=== PATIENT | male | born 1960 | race Asian ===

== ENCOUNTER 2016-06-27 22:30 | Emergency (ER) | payer OTHER ==
[2016-06-27 22:43] VITALS: BP 175/104; PULSE 73; RESP 18; TEMP 98.1; O2SAT 98
[2016-06-27] MEDS ORDERED: valACYclovir 500 MG TAB PO ONE (22:50)
[2016-06-27] MEDS ORDERED: HYDROCOD/APAP 5/325 PREPACK#6 BTL TAKEHOME ONE (22:51)
[2016-06-27] MEDS ORDERED: IBUPROFEN 200 MG TAB PO ONE (22:51)
--- NOTE | 2016-06-27 22:53 | UCPHY ---
H & P Time Seen by Provider: 06/27/16 22:50 Patient Type: New HPI/ROS: This patient has blisters to his 5 neck and cheek that are burning in nature with mild itching. Symptoms came on over the past 48 hours and been steadily increasing. The left ear is also involved. He reports increased stress recently and also recent URI symptoms that are improving that consisted of coryza and occasional cough. ROS: No headache. No confusion. No ocular symptoms. 7 point ROS is otherwise negative. Past Medical/Surgical History: No previous zoster. Otherwise healthy Social History: Does not drink alcohol. Does not use drugs. Smoking Status: Never smoked Physical Exam: Physical Exam Vital signs are normal. General: No acute distress HEENT: Nose: Clear discharge bilaterally. No sinus tenderness to percussion. Ears: External canals and tympanic membranes are clear with no erythema or abnormal findings bilaterally. Oropharynx: No intraoral lesions. No erythema or exudates. No dysphonia. No drooling or stridor. Eyes: Pupils equal and react to light. Extraocular motions are intact. No conjunctival injection. Neck: Supple Lungs: Clear to auscultation bilaterally with no rales, rhonchi or wheeze. No respiratory distress. Cardiac: Regular rate and rhythm with no murmur gallop or rub Skin: Patient has fascicular and erythematous papular rash in a dermatomal distribution of the left lateral neck, ear and cheek isolated to the left side. No petechia or purpura. Neuro: Alert with no focal deficits noted. GCS of 15. Cranial nerves 2-12 grossly intact Initial differential diagnosis: Zoster, contact dermatitis, doubt cellulitis Constitutional: Initial Vital Signs Temperature (C) 36.7 C 06/27/16 22:41 Heart Rate 73 06/27/16 22:41 Respiratory Rate 18 06/27/16 22:41 Blood Pressure 175/104 H 06/27/16 22:41 O2 Sat (%) 98 06/27/16 22:41 O2 Delivery Mode Room Air Allergies/Adverse Reactions: No Known Allergies Allergy (Unverified 06/27/16 22:41) Home Medications: Medication Instructions Recorded Hydrochlorothiazide 06/27/16 Hydrocodone/APAP 5/325 [[place] 1 - 2 tab PO Q4PRN PRN #12 tab 06/27/16 5/325 (*)] Metoprolol Tartrate 06/27/16 Valacyclovir HCl [Valtrex] 1,000 mg PO TID #21 tab 06/27/16 MDM/Departure - MDM Medications Given: Discontinued Medications Hydrocodone Bitart/Acetaminophen ([place] 5/325mg Prepack#6) 1 btl TAKEHOME EDNOW ONE Stop: 06/27/16 22:52 Last Admin: 06/27/16 23:15 Dose: 1 btl Acyclovir (Zovirax 400 Mg Prepack #4) 1 btl TAKEHOME EDNOW ONE Stop: 06/27/16 23:21 Last Admin: 06/27/16 23:15 Dose: 1 btl Ibuprofen (Motrin) 600 mg PO EDNOW ONE Stop: 06/27/16 22:52 Last Admin: 06/27/16 23:15 Dose: 600 mg Valacyclovir HCl (Valtrex) 1,000 mg PO EDNOW ONE Stop: 06/27/16 22:51 Last Admin: 06/27/16 23:22 Dose: Not Given ED Course/Re-evaluation: With exception of the rash characteristic of zoster this patient appears clinically well without clinical evidence to suggest sepsis, BOX [employer] infection or cellulitis. - Depart Disposition: Home, Routine, Self-Care Clinical Impression: Zoster Qualifiers: Herpes zoster complications: without complications Qualified Code(s): B02.9 - Zoster without complications Condition: Good Instructions: Hydrocodone/Acetaminophen (By mouth), Acyclovir (By mouth), Shingles (ED) Additional Instructions: Diagnosis: Shingles (zoster) Plan: Valtrex antiviral as prescribed [id number] mg per 6 hours while awake as needed for pain Tylenol or Vicodin in addition if needed. No driving, alcohol or come Vicodin. Return for any significant worsening despite the treatment plan Prescriptions: Hydrocodone/APAP 5/325 [[place] 5/325 (*)] 1 - 2 tab PO Q4PRN PRN #12 tab PRN Reason: Pain Valacyclovir HCl [Valtrex] 1,000 mg PO TID #21 tab Referrals: NONE *PRIMARY CARE P,. [Primary Care Provider] - As per Instructions - PQRS PQRS Measurement: NA
[2016-06-27] MEDS ORDERED: ACYCLOVIR 400 MG PREPACK#4 BTL TAKEHOME ONE ×2 (23:02→23:20)
== END 2016-06-27 23:15 | disposition home or self-care (01) ==
LOC: CED 22:30
DX: B02.9 Zoster without complications (principal)
CPT/HCPCS: 99203-PO; G0463-PO